=== PATIENT | male | born 1975 | race Caucasian/White ===

== ENCOUNTER 2020-07-12 06:06 | Emergency (ER) | payer BC, OTHER ==
[2020-07-12] MEDS ORDERED: CYCLOBENZAPRINE10 MG PO (06:54)
[2020-07-12] MEDS ORDERED: IBUPROFEN600 MG PO (06:54)
== END 2020-07-12 07:53 | disposition home or self-care (01) ==
LOC: ER1 06:06
DX: G89.29 Other chronic pain (principal); F17.210 Nicotine dependence, cigarettes, uncomplicated; M25.511 Pain in right shoulder; Z90.89 Acquired absence of other organs
CPT/HCPCS: 73030; 96372; 99283; J1885